=== PATIENT | male | born 1970 | race Caucasian/White ===

== ENCOUNTER 2019-05-22 09:45 | Outpatient (CLI) | payer OTHER, SELFPAY ==
--- NOTE | 2019-05-22 | XRR_ITS ---
[facility] Final Radiology Report Call: [phone] assistance Online chat: [email or web address] Name: DEEPA HIDALGO Age: 48Years M Date: 05/22/2019 SSN: -- : 1970 Study: XR CHEST 2 VIEWS Requesting Physician: Natasha Burch Provided Clinical History: RESPIRATORY DISORDERS PROCEDURE INFORMATION: Exam: XR Chest, 2 Views Exam date and time: 05/22/2019 9:59 AM Age: 48 years old Clinical indication: Condition or disease; Other: Respiratory disorders; Prior surgery; Surgery type: Back, date not provided TECHNIQUE: Imaging protocol: XR of the chest Views: 2 views. COMPARISON: CR Chest 2 views* [id number] 03/22/2017 8:25 AM FINDINGS: Lungs: Unremarkable. No consolidation. Pleural space: Unremarkable. No pleural effusion. No pneumothorax. Heart/Mediastinum: Unremarkable. No cardiomegaly. Bones/joints: Unremarkable. IMPRESSION: No acute findings. Thank you for allowing us to participate in the care of your patient. Dictated and Authenticated by: Ángel Birch MD 05/22/2019 1:20 PM Central Time ([place] & [place]) RACH
== END 2019-05-22 09:46 | disposition home or self-care (01) ==
PROVIDERS: Family Provider Family Medicine; PCP Family Medicine; Visit Provider Nurse Practitioner Family
DX: J98.9 Respiratory disorder, unspecified (principal)
CPT/HCPCS: 71046

== ENCOUNTER 2020-02-01 08:04 | Outpatient (CLI) | payer OTHER, SELFPAY ==
--- NOTE | 2020-02-01 08:10 | XR_ITS ---
WS: [id number] CERVICAL SPINE TECHNIQUE: 3 views of the cervical spine CLINICAL INFORMATION: RADICULOPATHY COMPARISON: None. FINDINGS: Straightening of the normal cervical lordosis. Postoperative changes anterior interbody cervical fusi on C5-C7. Hardware appears in good position. Mild prevertebral soft tissue edema consistent with nelia y postoperative changes. Normal C1-C2 articulation. XR/XR cervical spine 3V* [id number] IMPRESSION: Satisfactory postoperative anterior interbody cervical fusion C5-C7
== END 2020-02-01 08:05 | disposition home or self-care (01) ==
LOC: RADWPI 08:08
PROVIDERS: PCP Family Medicine; Visit Provider Physician Assistant
DX: M54.12 Radiculopathy, cervical region (principal); M43.22 Fusion of spine, cervical region
CPT/HCPCS: 72040

== ENCOUNTER 2020-06-24 08:07 | Outpatient (CLI) | payer OTHER, SELFPAY ==
--- NOTE | 2020-06-24 08:15 | XR_ITS ---
WS: [id number] CERVICAL SPINE 2 VIEWS HISTORY: RADICULOPATHY, CERVICAL REGION COMPARISON: 02/01/2020 Mild straightening of the normal cervical lordosis. Anterior cervical fusion extends from C5 to C7. I nterbody spacers at C5-6 and C6-7. No change in position of the hardware. Stable mild anterior wedgin g of C6. Endplate osteophytes extend posteriorly from C6 by 2 mm. Soft tissues are normal. XR/XR cervical spine 3V* [id number] IMPRESSION: Anterior cervical fusion with interbody spacers from C5 to C7 intact. No change in the osseous or soft tissue structures.
== END 2020-06-24 08:08 | disposition home or self-care (01) ==
LOC: RADWPI 08:11
PROVIDERS: PCP Family Medicine; Visit Provider Physician Assistant
DX: M54.12 Radiculopathy, cervical region (principal); M43.22 Fusion of spine, cervical region
CPT/HCPCS: 72040

== ENCOUNTER 2022-09-29 20:00 | Outpatient (CLI) | payer OTHER, SELFPAY | END 2022-09-30 05:50 | disposition home or self-care (01) | LOC: SLEEP 10-13 08:19 | PROVIDERS: PCP Family Medicine; Visit Provider Emergency Medicine Emergency Medical Services | DX: G47.30 Sleep apnea, unspecified (principal) | CPT/HCPCS: 95810 ==

== ENCOUNTER 2022-11-02 20:00 | Outpatient (CLI) | payer OTHER, SELFPAY | END 2022-11-02 20:01 | disposition home or self-care (01) | LOC: SLEEP 11-03 06:34 | PROVIDERS: PCP Family Medicine; Visit Provider Emergency Medicine Emergency Medical Services | DX: G47.33 Obstructive sleep apnea (adult) (pediatric) (principal) | CPT/HCPCS: 95811 ==

== ENCOUNTER → 2024-01-04 08:26 | Outpatient (BNVA) | payer OTHER, SELFPAY | PROVIDERS: PCP Family Medicine; Visit Provider Orthopaedic Surgery | DX: M54.50 Low back pain, unspecified (principal); M54.2 Cervicalgia | CPT/HCPCS: 72050; 72110; 99204 ==

== ENCOUNTER 2024-02-08 08:07 | Outpatient (CLI) | payer OTHER, SELFPAY ==
--- NOTE | 2024-02-08 08:45 | MR_ITS ---
WS: [id number] MRI LUMBAR SPINE NONCONTRAST HISTORY: lumbar pain COMPARISON: 10/13/2016 TECHNIQUE: Sagittal and axial multisequence imaging is submitted. Mild straightening of the normal lumbar lordosis. Posterior lumbar fusion at L5-S1 with interbody disc spacer. Well-maintained disc space at L5-S1. The remaining disc spaces are well-maintained also. No fractures or acute marrow edema. Conus terminates normally at L1-2 disc level. L1-L2: Normal. L2-L3: Mild disc bulging with facet and ligamentum flavum hypertrophy. L3-L4: Mild disc bulging with ligamentum flavum and facet arthritis. Very slight encroachment upon th e subarticular recesses. L4-L5: Mild annular disc bulging with moderate ligamentum flavum and facet arthritis. Subarticular re cesses with disc encroachment contacting the traversing L5 nerve roots. Mild central with bilateral s ubarticular recess and foraminal stenosis. Stenosis has progressed since the study from 2017. L5-S1: Facet joint arthropathy at L5-S1. Mild bilateral foraminal narrowing predominately due to oste ophyte and facet disease. Partial obscuration of the RIGHT neural foramen due to artifact. Disc protr usion noted on the prior study from 2017 is no longer present. MR/MR lumbar spine wo con* [id number] IMPRESSION: 1. Status post posterior lumbar fusion at L5-S1 with interbody disc spacer. 2. Mild progression of degenerative changes at L4-5. There is now mild central with bilateral subarticular recess and foraminal stenosis. Disc contacts the t raversing L5 nerve roots. 3. Mild bilateral foraminal narrowing at L5-S1. RIGHT foramen is partially obs cured by artifact. 4. L3-4: Mild disc encroachment upon the subarticular recesses.
--- NOTE | 2024-02-08 09:30 | MR_ITS ---
WS: [id number] MRI CERVICAL SPINE NONCONTRAST HISTORY: cervical pain COMPARISON: None available. Technique: Multiplanar, multisequence noncontrast imaging of the cervical spine. Prior anterior cervical fusion from C5-C7. Interbody disc spacers at C5-6 and C6-7. Mild straightenin g of the normal cervical lordosis. Signal within the cervical cord is normal. Visualized posterior fossa is unremarkable. Craniocervical junction, C1 and C2 relationship, odontoid process and soft tissues are normal. C2-C3: Central small disc protrusion. No stenosis. C3-C4: Mild disc bulging with a central disc protrusion and osteophytic ridging. Mild facet arthritis . Moderate RIGHT and mild LEFT foraminal stenosis due to disc osteophyte disease. C4-C5: Diffuse annular disc bulging with a central disc protrusion. Mild osteophytic ridging and face t arthropathy. Moderate bilateral foraminal stenosis and mild central stenosis. C5-C6: Small foraminal osteophytes. No high-grade stenosis. C6-C7: Mild osteophytic ridging encroaching upon the ventral thecal sac and the foramina. Mild bilate ral foraminal stenosis, LEFT greater than RIGHT and mild facet arthritis. C7-T1: Shallow LEFT paracentral disc osteophyte. Very mild bilateral foraminal stenosis. Paraspinal soft tissue are normal. MR/MR cervical spin wo con* [id number] IMPRESSION: 1. Prior anterior cervical fusion from C5-C7 with interbody spacers, intact. 2. No acute fractures. 3. C2-3: Small central disc protrusion. 4. C3-4: Small central disc protrusion with osteophytic ridging. Moderate RIGH T and mild LEFT foraminal stenosis. 5. C4-5: Moderate bilateral foraminal stenosis and mild central stenosis. 6. Mild bilateral foraminal stenosis at C5-6, C6-7 and C7-T1.
== END 2024-02-08 08:08 | disposition home or self-care (01) ==
LOC: RAD 08:07
PROVIDERS: PCP Nurse Practitioner Family; Visit Provider Orthopaedic Surgery
DX: M99.61 Osseous and subluxation stenosis of intervertebral foramina of cervical region (principal); M25.78 Osteophyte, vertebrae; M50.20 Other cervical disc displacement, unspecified cervical region; M47.896 Other spondylosis, lumbar region; M99.63 Osseous and subluxation stenosis of intervertebral foramina of lumbar region; M47.898 Other spondylosis, sacral and sacrococcygeal region
CPT/HCPCS: 72141; 72148

== ENCOUNTER → 2024-02-15 08:26 | Outpatient (BNVA) | payer OTHER, SELFPAY | PROVIDERS: PCP Nurse Practitioner Family; Visit Provider Orthopaedic Surgery | DX: Z01.818 Encounter for other preprocedural examination (principal); Z09 Encounter for follow-up examination after completed treatment for conditions other than malignant neoplasm | CPT/HCPCS: 36415; 80053; 81001; 83036; 85025; 99214 ==